=== PATIENT | male | born 2000 | race African-American/Black ===

== ENCOUNTER 2021-11-20 04:32 | Emergency (ER) | payer SELFPAY ==
[~2021-11-20] VITALS: Ht 165.1 cm; Wt 60.8 kg
[2021-11-20 04:37] VITALS: BP 137/85
--- NOTE | 2021-11-20 04:42 | NUR ---
patient to bed 9
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
--- NOTE | 2021-11-20 05:05 | NUR ---
pt back from ct. provided pt ice pack
[2021-11-20] MEDS ORDERED: ACETAMINOPHEN EXTRA STRENGTH 500 MG TAB PO ONE (05:10)
[2021-11-20] MEDS ORDERED: ACET-10509 PO (05:48)
[2021-11-20] MEDS ORDERED: MORPHINE SULFATE 4 MG/ML SYR IM ONE (06:20)
--- NOTE | 2021-11-20 06:20 | NUR ---
MEDICATED PER [facility] ORDER. TOLERATED WELL.
[2021-11-20 07:00] VITALS: BP 130/80
--- NOTE | 2021-11-20 07:00 | NUR ---
Patient discharged with v/s stable. Written and verbal after care instructions given and explained. Patient alert, oriented and verbalized understanding of instructions. Ambulatory with steady gait. All questions addressed prior to discharge. ID band removed. Patient advised to follow up with PMD. Rx of TYLENOL given. Opportunity to ask questions provided and answered.
--- NOTE | 2021-11-20 07:02 | NUR ---
Chart checked and completed.
== END 2021-11-20 07:00 | disposition home or self-care (01) ==
LOC: MED 04:32
DX: S09.90XA Unspecified injury of head, initial encounter (principal); F12.90 Cannabis use, unspecified, uncomplicated; Z88.6 Allergy status to analgesic agent; Z88.8 Allergy status to other drugs, medicaments and biological substances; Z79.899 Other long term (current) drug therapy; Y04.2XXA Assault by strike against or bumped into by another person, initial encounter; Y93.89 Activity, other specified; Y92.89 Other specified places as the place of occurrence of the external cause; Y99.8 Other external cause status
CPT/HCPCS: 70486; 96372; 99284; J2270

== ENCOUNTER 2022-01-30 04:59 | Emergency (ER) | payer SELFPAY ==
[~2022-01-30] VITALS: Ht 167.6 cm; Wt 63.5 kg
[~2022-01-30 04:59] MED LIST: ACET-10509 PO
[2022-01-30 05:15] VITALS: BP 106/79
--- NOTE | 2022-01-30 05:18 | NUR ---
TO LOBBY A/W BED AMBULATORY
--- NOTE | 2022-01-30 07:25 | NUR ---
PATIENT LEFT WITHOUT BEING SEEN BY . NO FURTHER CARE PROVIDED FOR PATIENT.
--- NOTE | 2022-01-30 07:35 | NUR ---
CALLED PT. NO SHOW.
--- NOTE | 2022-01-30 07:41 | NUR ---
CALLED [phone] NO ANSWERING.
== END 2022-01-30 07:42 | disposition left against medical advice (07) ==
LOC: MED 04:59
DX: R51.9 Headache, unspecified (principal); Z53.21 Procedure and treatment not carried out due to patient leaving prior to being seen by health care provider

== ENCOUNTER 2022-02-27 15:45 | Emergency (ER) | payer SELFPAY ==
[~2022-02-27] VITALS: Ht 165.1 cm; Wt 61.7 kg
[2022-02-27 15:47] VITALS: BP 114/60
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
--- NOTE | 2022-02-27 16:18 | NUR ---
FERMIN MCCORD EVALUATING PT AT [facility].
[2022-02-27] MEDS ORDERED: HYDROcodone/APAP 5/325 MG 1 TAB TAB PO ONE (16:20)
[2022-02-27] MEDS ORDERED: CETI10SG1 PO ×2 (16:58→17:09)
[2022-02-27] MEDS ORDERED: ACET-10509 PO (16:58)
[2022-02-27] MEDS ORDERED: TRAM50TA1 PO ×2 (17:06→17:09)
[2022-02-27 17:11] VITALS: BP 119/72
--- NOTE | 2022-02-27 17:11 | NUR ---
Patient discharged with v/s stable. Written and verbal after care instructions given and explained. Patient alert, oriented and verbalized understanding of instructions. Ambulatory with steady gait. All questions addressed prior to discharge. ID band removed. Patient advised to follow up with PMD. Rx of ZYTREC & ULTRAM given. Patient educated on indication of medication including possible reaction and side effects. Opportunity to ask questions provided and answered.
== END 2022-02-27 17:11 | disposition home or self-care (01) ==
LOC: MED 15:45
DX: K08.89 Other specified disorders of teeth and supporting structures (principal); Z79.891 Long term (current) use of opiate analgesic; Z79.899 Other long term (current) drug therapy; Z88.6 Allergy status to analgesic agent; Z88.8 Allergy status to other drugs, medicaments and biological substances
CPT/HCPCS: 99283; Q0163

== ENCOUNTER 2022-04-30 12:39 | Emergency (ER) | payer MEDICAID ==
[~2022-04-30] VITALS: Ht 172.7 cm; Wt 65.8 kg
[~2022-04-30 12:39] MED LIST changes: +CETI10SG1 PO; +TRAM-748 PO
[2022-04-30 13:02] VITALS: BP 147/95
[2022-04-30] MEDS ORDERED: ONDANSETRON 4 MG ODT PO SCH (14:45)
[2022-04-30] MEDS ORDERED: traMADol 50 MG TAB PO ONE (14:45)
--- NOTE | 2022-04-30 16:59 | NUR ---
Isabella guzmaneliezer in EDM - 04/30/22 at 1820 by [email or web address] PATIENT LEFT WITHOUT BEING SEEN BY DR. STEARNS. NO FURTHER CARE PROVIDED FOR PATIENT.
--- NOTE | 2022-04-30 17:36 | NUR ---
PATIENT ELOPED FROM FACILITY. DISCHARGE INSTRUCTIONS NOT GIVEN TO PATIENT. FERMIN HI NOTIFIED.
== END 2022-04-30 17:36 | disposition left against medical advice (07) ==
LOC: MED 12:39
DX: M54.2 Cervicalgia (principal); M54.50 Low back pain, unspecified; R51.9 Headache, unspecified; Z79.899 Other long term (current) drug therapy; Z88.6 Allergy status to analgesic agent; Z88.8 Allergy status to other drugs, medicaments and biological substances
CPT/HCPCS: 99281

== ENCOUNTER 2022-07-16 00:15 | Emergency (ER) | payer MEDICAID, OTHER ==
[~2022-07-16] VITALS: Ht 182.9 cm; Wt 62.6 kg
[2022-07-16 00:24] VITALS: BP 115/65
--- NOTE | 2022-07-16 00:24 | NUR ---
to bed ambulatory
--- NOTE | 2022-07-16 01:14 | NUR ---
TO BED 12 FROM LOBBY
--- NOTE | 2022-07-16 01:29 | NUR ---
Patient resting in bed, A/Ox4, chest rise and fall symmetrical, no s/s of distress.
--- NOTE | 2022-07-16 02:00 | NUR ---
Patient resting in bed, A/Ox4, chest rise and fall symmetrical, no s/s of distress.
[2022-07-16] MEDS ORDERED: ALUMINUM HYD/MAG/SIMETHICONE 30 ML UDC PO ONE (02:10)
[2022-07-16 02:21] LABS: BASOPHILS # (AUTO) 0.1 K/uL (0.00-0.22); BASOPHILS % (AUTO) 1.7 % (0.0-2.0); EOSINOPHILS # (AUTO) 0.1 K/uL (0-0.4); EOSINOPHILS % (AUTO) 0.9 % (0.0-4.0); HEMATOCRIT 41.6 % (36-52); HEMOGLOBIN 14.7 g/dL (12.0-18.0); LYMPHOCYTES # (AUTO) 2.2 K/uL (2.0-11.5); MEAN CORPUSCULAR HEMOGLOBIN 32 pg (27-31); MEAN CORPUSCULAR HGB CONC 35 g/dL (33-37); MEAN CORPUSCULAR VOLUME 89.7 fL (80-94); MONOCYTES # (AUTO) 0.6 K/uL (0.8-1.0); MONOCYTES % (AUTO) 8.4 % (1.7-9.3); NEUTROPHILS # (AUTO) 4.2 K/uL (1.8-7.7); PLATELET COUNT (AUTO) 253 K/uL (140-450); RED BLOOD CELL COUNT(AUTO) 4.64 MIL/uL (4.20-6.10); RED CELL DISTRIBUTION WIDTH 13.2 % (11.6-13.7); WHITE BLOOD COUNT (AUTO) 7.3 K/uL (4.8-10.8)
[2022-07-16 02:37] LABS: ALBUMIN 4.2 g/dL (3.4-5.0); ANION GAP 9.3 (8-16); CARBON DIOXIDE 28.4 mmol/L (21-32); CREATININE 1.1 mg/dL (0.6-1.3); POTASSIUM 3.7 mmol/L (3.5-5.1); TOTAL BILIRUBIN 0.3 mg/dL (0.0-1.0)
--- NOTE | 2022-07-16 03:02 | NUR ---
Patient resting in bed, A/Ox4, chest rise and fall symmetrical, no s/s of distress.
[2022-07-16 03:07] VITALS: BP 112/74
--- NOTE | 2022-07-16 03:12 | NUR ---
Patient discharged with v/s stable. Written and verbal after care instructions given and explained. Patient verbalized understanding. Ambulatory with steady gait. All questions addressed prior to discharge. Advised to follow up with PMD.
== END 2022-07-16 03:10 | disposition home or self-care (01) ==
LOC: MED 00:15
DX: K64.8 Other hemorrhoids (principal); K59.00 Constipation, unspecified; Z88.5 Allergy status to narcotic agent; Z79.1 Long term (current) use of non-steroidal anti-inflammatories (NSAID); Z88.8 Allergy status to other drugs, medicaments and biological substances
CPT/HCPCS: 36415; 80053; 83690; 85025; 99283

== ENCOUNTER 2022-07-27 13:58 | Emergency (ER) | payer OTHER ==
[~2022-07-27] VITALS: Ht 167.6 cm; Wt 64.0 kg
[2022-07-27 14:12] VITALS: BP 135/67
--- NOTE | 2022-07-27 14:15 | NUR ---
PT AMB TO BED 7
[2022-07-27] MEDS ORDERED: BENZOCAINE 20% 57 GM CAN MC ONE (14:35)
--- NOTE | 2022-07-27 14:53 | NUR ---
Dr. Thompson performing procedure.
--- NOTE | 2022-07-27 14:55 | NUR ---
22 y/o male bib self with c/o braces stuck to his inner lower lip. Patient states he was going up stairs and tripped, causing himself to hit his lower lip. Denies any medication prior to arrival. Patient was unable to detach the braces from his lip prior to arrival. Medical History: Denies ALLERGY: ACETAMINOPHEN, IBUPROFEN, NAPROXEN
[2022-07-27 15:36] VITALS: BP 130/69
--- NOTE | 2022-07-27 15:36 | NUR ---
Patient discharged with v/s stable. Written and verbal after care instructions given. Patient verbalized understanding. Ambulatory with steady gait. All questions addressed prior to discharge. Advised to follow up with PMD.
--- NOTE | 2022-07-27 15:37 | NUR ---
The patient's care was reviewed and supervised by Joselo Vasquez RN.
== END 2022-07-27 15:36 | disposition home or self-care (01) ==
LOC: MED 13:58
DX: S00.551A Superficial foreign body of lip, initial encounter (principal); Z88.5 Allergy status to narcotic agent; Z79.1 Long term (current) use of non-steroidal anti-inflammatories (NSAID); Z88.8 Allergy status to other drugs, medicaments and biological substances; W10.8XXA Fall (on) (from) other stairs and steps, initial encounter; Y93.89 Activity, other specified; Y92.89 Other specified places as the place of occurrence of the external cause; Y99.8 Other external cause status
CPT/HCPCS: 99284

== ENCOUNTER 2022-12-27 18:05 | Emergency (ER) | payer OTHER ==
[~2022-12-27] VITALS: Ht 167.6 cm; Wt 63.5 kg
[2022-12-27 18:36] VITALS: BP 132/83; PULSE 80; RESP 18; TEMP 99; O2SAT 99
--- NOTE | 2022-12-27 19:10 | NUR ---
PT TAKEN TO CHAIR A
[2022-12-27] MEDS ORDERED: MORPHINE SULFATE 4 MG/ML SYR IM ONE ×2 (19:15→20:50)
--- NOTE | 2022-12-27 20:19 | NUR ---
PT ADMINISTERED FIRST DOSE OF MORPHINE WITH NO RELIEF, DR. VALENTINE NOTIFIED.
[2022-12-27 21:11] VITALS: BP 126/95; PULSE 62; O2SAT 100
--- NOTE | 2022-12-27 21:11 | NUR ---
SECOND DOSE ADMINISTERED OF MOREPHINE WITH NO RELIEF, DR. VALENTINE NOTIFIED
[2022-12-27] MEDS ORDERED: CEPH-588 PO (21:46)
[2022-12-27] MEDS ORDERED: MORP15TA PO (21:46)
--- NOTE | 2022-12-27 21:52 | NUR ---
Note eliu in ED - 12/28/22 at 0456 by YRIS Patient discharged with v/s stable. Written and verbal after care instructions given and explained. Patient verbalized understanding. Ambulatory with steady gait. All questions addressed prior to discharge. Advised to follow up with PMD.
--- NOTE | 2022-12-27 21:54 | NUR ---
Patient discharged with v/s stable. Written and verbal after care instructions given and explained. Patient alert, oriented and verbalized understanding of instructions. Ambulatory with steady gait. All questions addressed prior to discharge. ID band removed. Patient advised to follow up with PMD. Rx of KEFLEX AND MORPHINE SULFATE Opportunity to ask questions provided and answered. PT AMBULATED WITH CRUTCHES
--- NOTE | 2022-12-27 21:56 | NUR ---
Crutches dispensed. Taught proper use, patient returned demo.
--- NOTE | 2022-12-27 22:11 | NUR ---
Isabella nowak in ED - 12/28/22 at 0453 by [email or web address] PT ADMINISTERED FIRST DOSE OF MORPHINE WITH NO RELIEF AND DR. VALENTINE NOTIFIED. SECOND DOSE ADMINISTERED OF MOREPHINE WITH NO RELIEF, DR. VALENTINE NOTIFIED
--- NOTE | 2022-12-28 04:58 | NUR ---
The patient's care was reviewed and supervised by Savannah Kruse RN.
== END 2022-12-27 21:54 | disposition home or self-care (01) ==
LOC: MED 18:05
DX: S80.11XA Contusion of right lower leg, initial encounter (principal); Z88.6 Allergy status to analgesic agent; Z88.8 Allergy status to other drugs, medicaments and biological substances; Z79.899 Other long term (current) drug therapy; X58.XXXA Exposure to other specified factors, initial encounter; Y93.39 Activity, other involving climbing, rappelling and jumping off; Y92.89 Other specified places as the place of occurrence of the external cause; Y99.8 Other external cause status
CPT/HCPCS: 73562; 73610; 73630; 96372; 99284; J2270

== ENCOUNTER 2023-05-23 01:45 | Emergency (ER) | payer MEDICAID, OTHER ==
[~2023-05-23] VITALS: Ht 167.6 cm; Wt 59.0 kg
[~2023-05-23 01:45] MED LIST changes: +CEPH-588 PO; +MORP15TA PO
[2023-05-23 01:54] VITALS: BP 115/70; PULSE 90; RESP 20; TEMP 98; O2SAT 92
[2023-05-23] MEDS ORDERED: NACL 0.9% 1,000 ML IV ONE (02:10)
[2023-05-23] MEDS ORDERED: MORPHINE SULFATE 4 MG/ML SYR IVP ONE (02:10)
[2023-05-23] MEDS ORDERED: ONDANSETRON 4 MG/2 ML VIAL IVP ONE (02:10)
[2023-05-23 02:35] VITALS: BP 136/92; PULSE 78; RESP 12; TEMP 97.9; O2SAT 100
[2023-05-23 02:39] LABS: BASOPHILS # (AUTO) 0.1 K/uL (0.00-0.22); BASOPHILS % (AUTO) 0.9 % (0.0-2.0); EOSINOPHILS % (AUTO) 0.2 % (0.0-4.0); HEMATOCRIT 43.3 % (36-52); HEMOGLOBIN 14.9 g/dL (12.0-18.0); LYMPHOCYTES # (AUTO) 1.6 K/uL (2.0-11.5); LYMPHOCYTES % (AUTO) 28.5 % (20.5-51.1); MEAN CORPUSCULAR HEMOGLOBIN 31 pg (27-31); MEAN CORPUSCULAR HGB CONC 35 g/dL (33-37); MEAN CORPUSCULAR VOLUME 88.8 fL (80-94); MONOCYTES # (AUTO) 0.4 K/uL (0.8-1.0); NEUTROPHILS # (AUTO) 3.6 K/uL (1.8-7.7); NEUTROPHILS % (AUTO) 63.4 % (42.2-75.2); PLATELET COUNT (AUTO) 290 K/uL (140-450); RED BLOOD CELL COUNT(AUTO) 4.87 MIL/uL (4.20-6.10); RED CELL DISTRIBUTION WIDTH 13.3 % (11.6-13.7); WHITE BLOOD COUNT (AUTO) 5.7 K/uL (4.8-10.8)
[2023-05-23 02:52] LABS: ANION GAP 12.8 (8-16); CALCIUM 9.2 mg/dL (8.5-10.1); CARBON DIOXIDE 29.6 mmol/L (21-32); CREATININE 1.1 mg/dL (0.6-1.3); POTASSIUM 3.4 mmol/L (3.5-5.1)
[2023-05-23 02:57] LABS: TOTAL BILIRUBIN 0.2 mg/dL (0.0-1.0)
[2023-05-23 02:58] LABS: BILIRUBIN,DIRECT 0.1 mg/dL (0.0-0.3); TOTAL PROTEIN, SERUM 7.2 g/dL (6.4-8.2)
[2023-05-23 03:01] LABS: FLU A ANTIGEN negative (NEGATIVE); FLU B ANTIGEN NEGATIVE (NEGATIVE)
[2023-05-23 03:11] LABS: APPEARANCE,URINE CLEAR (CLEAR); BILIRUBIN,URINE NEGATIVE (NEGATIVE); BLOOD, URINE NEGATIVE (NEGATIVE); COLOR,URINE YELLOW (YELLOW); LEUKOCYTE ESTERASE ,URINE NEGATIVE (NEGATIVE); NITRITE, URINE NEGATIVE (NEGATIVE); PROTEIN,URINE NEGATIVE (NEGATIVE); UGLUCOSE NEGATIVE (NEGATIVE)
[2023-05-23] MEDS ORDERED: METOCLOPRAMIDE 10 MG/2 ML INJ VIAL IVP ONE (04:35)
[2023-05-23] MEDS ORDERED: diphenhydrAMINE 50 MG/ML VIAL IVP ONE (04:35)
[2023-05-23] MEDS ORDERED: LORazepam 2 MG/ML VIAL ONE (05:23)
[2023-05-23] MEDS ORDERED: LORazepam 2 MG/ML VIAL IVP ONE (05:25)
[2023-05-23] MEDS ORDERED: IMI50 PO (06:13)
== END 2023-05-23 06:21 | disposition home or self-care (01) ==
LOC: MED 01:45
DX: G43.909 Migraine, unspecified, not intractable, without status migrainosus (principal); Z20.822 Contact with and (suspected) exposure to COVID-19; Z88.8 Allergy status to other drugs, medicaments and biological substances; Z79.899 Other long term (current) drug therapy; Z88.5 Allergy status to narcotic agent
CPT/HCPCS: 36415; 70450; 80048; 80076; 81003; 85025; 87040; 87426; 87804; 96361; 96374; 96375; 99285; J1200; J2060; J2270; J2405; J2765; J7030